=== PATIENT | male | born 1960 | race Caucasian/White ===

== ENCOUNTER → 2019-09-09 | Outpatient (CLI) | payer OTHER | LOC: M.MRI 17:02 | DX: M17.12 Unilateral primary osteoarthritis, left knee (principal); S83.242A Other tear of medial meniscus, current injury, left knee, initial encounter; M25.462 Effusion, left knee; X58.XXXA Exposure to other specified factors, initial encounter; Y93.89 Activity, other specified; Y92.89 Other specified places as the place of occurrence of the external cause; Y99.8 Other external cause status ==

== ENCOUNTER 2019-10-19 06:55 | Inpatient (IN) | payer OTHER ==
[2019-10-07 09:17] LABS: HEMATOCRIT 41.2 % (42.0-52.0); MPV 11.1 fl. (7.2-11.1); RBC 4.25 mil/uL (4.50-6.00); RDW-CV 12.8 % (10.5-14.5); WBC 4.9 thou/uL (4.0-11.0)
[2019-10-07 09:23] LABS: PROTIME 10.7 Seconds (9.20-11.50)
[2019-10-07 09:29] LABS: ALBUMIN 3.1 g/dL (3.4-5.0); CALCIUM 8.1 mg/dL (8.5-10.1); CREATININE 0.9 mg/dL (0.6-1.3); POTASSIUM 4.2 mmol/L (3.5-5.1); TOTAL BILIRUBIN 0.8 mg/dL (<0.1-1.0); TOTAL PROTEIN 6.4 g/dL (6.4-8.2)
--- NOTE | 2019-10-07 11:21 | EKG ---
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
[2019-10-07 12:35] LABS: URINE BILIRUBIN NEGATIVE (Negative); URINE BLOOD NEGATIVE (Negative); URINE CLARITY CLEAR; URINE COLOR YELLOW; URINE GLUCOSE-RANDOM 1+ (Negative); URINE KETONES NEGATIVE (Negative); URINE LEUKOCYTES-REFLEX NEGATIVE (Negative); URINE NITRITE-REFLEX NEGATIVE (Negative); URINE PROTEIN NEGATIVE (Negative); URINE SPECIFIC GRAVITY 1.025 (1.005-1.030); URINE UROBILINOGEN 0.2 E.U./dl (0.2-1.0)
[~2019-10-19] VITALS: Ht 185.4 cm; Wt 97.5 kg
[~2019-10-19 06:55] MED LIST: CELEBREX 200 M200 M1 PO; OMNIPOD1 EACH SQ
[2019-10-19 12:00] VITALS: BP 140/80
[2019-10-19 20:45] VITALS: BP 106/61
[2019-10-20] VITALS: BP 123/65
[2019-10-20 03:45] LABS: CALCIUM 7.9 mg/dL (8.5-10.1); CREATININE 0.8 mg/dL (0.6-1.3); MAGNESIUM 1.7 mg/dL (1.8-2.4); POTASSIUM 4.6 mmol/L (3.5-5.1)
[2019-10-20 04:00] VITALS: BP 124/49
[2019-10-20 05:48] LABS: HEMATOCRIT 33.7 % (42.0-52.0); HEMOGLOBIN 12.1 gm/dL (14.0-18.0); MCH 35.1 pg (26.0-34.0); MCHC 35.9 g/dL (28.0-37.0); MCV 97.8 fL (80.0-100.0); MPV 11.2 fl. (7.2-11.1); RBC 3.45 mil/uL (4.50-6.00); RDW-CV 12.9 % (10.5-14.5); WBC 14.5 thou/uL (4.0-11.0)
[2019-10-20] MEDS ORDERED: PERCOCET PO (10:47)
[2019-10-20] MEDS ORDERED: XARELTO10 MG PO (10:47)
[2019-10-20 10:50] VITALS: BP 121/55
[2019-10-20 11:52] VITALS: BP 121/55
[2019-10-20 12:11] VITALS: BP 121/55
== END 2019-10-20 13:45 | disposition home health service (06) | DRG 470 ==
LOC: M.ORTHSURG 06:55 → M.TBA 06:55 → M.PRE 07:54 → M.ORTHSURG 11:48 → M.PRE 13:02 → M.ORTHSURG 10-20 13:45
PROVIDERS: Internal Medicine; Orthopaedic Surgery; ADMIT Internal Medicine
PROC: 0SRD0J9 Replacement of Left Knee Joint with Synthetic Substitute, Cemented, Open Approach (ICD-10-PCS; principal; 2019-10-19)
PROC: 3E0T3BZ Introduction of Anesthetic Agent into Peripheral Nerves and Plexi, Percutaneous Approach (ICD-10-PCS; principal; 2019-10-19)
DX: M17.12 Unilateral primary osteoarthritis, left knee (principal); E10.9 Type 1 diabetes mellitus without complications; Z79.899 Other long term (current) drug therapy; Z79.4 Long term (current) use of insulin; Z98.1 Arthrodesis status; Z87.891 Personal history of nicotine dependence